=== PATIENT | female | born 1990 | race Caucasian/White ===

== ENCOUNTER → 2017-12-05 | Outpatient (CLI) | payer BC ==
[2017-12-05 07:45] LABS: Basophils % (A) 1 %; Eosinophils # (A) 0.1 k/uL (0-0.7); Eosinophils % (A) 2 %; HGB 13.7 gm/dL (11.4-16.0); Lymphocytes # (A) 2.2 k/uL (1.0-4.8); Lymphocytes % (A) 38 %; MCH 29.7 pg (25.0-35.0); MCHC 31.9 g/dL (31.0-37.0); MCV 93.2 fL (80.0-100.0); Mean Platelet Volume 6.8; Monocytes # (A) 0.4 k/uL (0-1.0); Monocytes % (A) 7 %; Neutrophils # (A) 2.8 k/uL (1.3-7.7); Neutrophils % (A) 49 %; Platelet Count 341 k/uL (150-450); RBC 4.61 m/uL (3.80-5.40); RDW 13.2 % (11.5-15.5); WBC 5.7 k/uL (3.8-10.6)
[2017-12-05 08:16] LABS: ALT 20 U/L (9-52); AST 25 U/L (14-36); Albumin 4.2 g/dL (3.5-5.0); Alkaline Phosphatase 46 U/L (38-126); Anion Gap 9 mmol/L; Blood Urea Nitrogen 17 mg/dL (7-17); Calcium 9.8 mg/dL (8.4-10.2); Carbon Dioxide 27 mmol/L (22-30); Chloride 105 mmol/L (98-107); Cholesterol 227 mg/dL (<200); Glucose 61 mg/dL (74-99); HDL Cholesterol 104 mg/dL (40-60); LDL Cholesterol,Calculated 113 mg/dL (0-99); Sodium 141 mmol/L (137-145); Total Bilirubin 0.3 mg/dL (0.2-1.3); Total Protein 7.3 g/dL (6.3-8.2); Triglycerides 50 mg/dL (<150)
[2017-12-05 19:14] LABS: Hemoglobin A1C 9.2 % (4.0-6.0)
== END | disposition home or self-care (01) ==
LOC: LABWHC1 07:10
PROVIDERS: ATTEND Family Medicine
DX: E10.9 Type 1 diabetes mellitus without complications (principal)
CPT/HCPCS: 36415; 80053; 80061; 83036; 84443; 85025

== ENCOUNTER → 2018-09-21 | Outpatient (CLI) | payer OTHER ==
[2018-09-21 16:11] LABS: African American GFR (CKD) 100.8 (60.0-200.0); Albumin 4.2 g/dL (3.80-4.90); Anion Gap 8.4 mmol/L (4.00-12.00); BUN/Creat Ratio 17.78 Ratio (12.00-20.00); Carbon Dioxide 25.6 mmol/L (21.6-31.8); Globulin 2.1 g/dL (1.6-3.3); Potassium 4.5 mmol/L (3.5-5.5); Total Bilirubin 0.6 mg/dL (0.3-1.2); Total Protein 6.3 g/dL (6.2-8.2)
[2018-09-21 17:53] LABS: Hemoglobin A1C 8.2 % (4.0-6.0)
== END | disposition home or self-care (01) ==
LOC: LABWHC1 07:20
PROVIDERS: ATTEND Internal Medicine Endocrinology, Diabetes & Metabolism
DX: E10.65 Type 1 diabetes mellitus with hyperglycemia (principal)
CPT/HCPCS: 36415; 80053; 83036; 84443

== ENCOUNTER → 2018-09-22 | Outpatient (CLI) | payer OTHER ==
[2018-09-22 11:33] LABS: LDL Cholesterol,Calculated 86.8 mg/dL (0.0-131.0); VLDL Calculation 16.2 mg/dL (5.00-40.00)
== END | disposition home or self-care (01) ==
LOC: LABWHC1 07:17
PROVIDERS: ATTEND Internal Medicine Endocrinology, Diabetes & Metabolism
DX: E10.65 Type 1 diabetes mellitus with hyperglycemia (principal)
CPT/HCPCS: 36415; 80061; 82043; 82570

== ENCOUNTER → 2019-03-02 | Outpatient (CLI) | payer OTHER ==
[2019-03-02 11:36] LABS: Urine Creatinine 136.4 mg/dL
[2019-03-02 11:48] LABS: African American GFR (CKD) 88.2 (60.0-200.0); Albumin 4.6 g/dL (3.80-4.90); Albumin/Globulin Ratio 2.09 (1.60-3.17); Anion Gap 8.6 mmol/L (4.00-12.00); Calcium 9.8 mg/dL (8.7-10.3); Carbon Dioxide 30.4 mmol/L (21.6-31.8); Chol/HDL Ratio 2.08; Globulin 2.2 g/dL (1.6-3.3); Non-African American GFR(CKD) 76.1 (60.0-200.0); Potassium 4.4 mmol/L (3.5-5.5); Total Bilirubin 0.7 mg/dL (0.2-1.2); Total Protein 6.8 g/dL (6.2-8.2)
[2019-03-02 13:19] LABS: Hemoglobin A1C 9.3 % (4.0-6.0)
== END | disposition home or self-care (01) ==
LOC: LABWHC1 07:21
PROVIDERS: ATTEND Internal Medicine Endocrinology, Diabetes & Metabolism
DX: E10.65 Type 1 diabetes mellitus with hyperglycemia (principal)
CPT/HCPCS: 36415; 80053; 80061; 82043; 82570; 83036; 84443

== ENCOUNTER → 2019-09-24 | Outpatient (CLI) | payer OTHER ==
[2019-09-24 15:10] LABS: African American GFR (CKD) 88.2 (60.0-200.0); Albumin 4.5 g/dL (3.80-4.90); Albumin/Globulin Ratio 1.96 (1.60-3.17); Anion Gap 9.7 mmol/L (4.00-12.00); Calcium 9.4 mg/dL (8.7-10.3); Carbon Dioxide 23.3 mmol/L (21.6-31.8); Chol/HDL Ratio 1.89; Globulin 2.3 g/dL (1.6-3.3); LDL Cholesterol,Calculated 74.4 mg/dL (0.0-131.0); Non-African American GFR(CKD) 76.1 (60.0-200.0); Potassium 4.6 mmol/L (3.5-5.5); Total Bilirubin 0.6 mg/dL (0.2-1.2); Total Protein 6.8 g/dL (6.2-8.2); VLDL Calculation 10.6 mg/dL (5.00-40.00)
[2019-09-24 17:39] LABS: Hemoglobin A1C 7.6 % (4.0-6.0)
[2019-09-24 18:53] LABS: Microalbumin Creatinine Ratio <30 mg/g Creat (0-30); Urine Creatinine 69.5 mg/dL
== END | disposition home or self-care (01) ==
LOC: LABWHC1 09:04
PROVIDERS: ATTEND Internal Medicine Endocrinology, Diabetes & Metabolism
DX: E10.65 Type 1 diabetes mellitus with hyperglycemia (principal)
CPT/HCPCS: 36415; 80053; 80061; 82043; 82570; 83036; 84443

== ENCOUNTER 2019-11-19 10:48 | Observation (INO) | payer OTHER ==
[2019-11-19 12:12] LABS: Appearance,Urine Turbid (Clear); Bacteria,Urine Rare /hpf; Basophils % (A) 1 %; Bilirubin,Urine Negative (Negative); Blood,Urine Large (Negative); Color,Urine Yellow; Eosinophils # (A) 0.1 k/uL (0-0.7); Eosinophils % (A) 1 %; Glucose,Urine (UA) Trace (Negative); HCT 42.7 % (34.0-46.0); HGB 13.8 gm/dL (11.4-16.0); Ketones,Urine Negative (Negative); Leukocyte Esterase,Urine Large (Negative); Lymphocytes # (A) 1.5 k/uL (1.0-4.8); Lymphocytes % (A) 22 %; MCH 29.6 pg (25.0-35.0); MCHC 32.4 g/dL (31.0-37.0); MCV 91.5 fL (80.0-100.0); Mean Platelet Volume 7.3; Monocytes # (A) 0.3 k/uL (0-1.0); Monocytes % (A) 5 %; Neutrophils # (A) 4.9 k/uL (1.3-7.7); Neutrophils % (A) 71 %; Nitrite,Urine Negative (Negative); PH, Urine 5.5 (5.0-8.0); Platelet Count 260 k/uL (150-450); Protein,Urine 1+ (Negative); RBC 4.66 m/uL (3.80-5.40); RBC,Urine >182 /hpf (0-5); RDW 12.3 % (11.5-15.5); Squamous Epithelial Cell,Urine 3 /hpf (0-4); Urobilinogen,Urine <2.0 mg/dL (<2.0); WBC,Urine >182 /hpf (0-5)
[2019-11-19 12:19] LABS: ALT 16 U/L (4-34); AST 29 U/L (14-36); African American GFR (CKD) >90 (>60 ml/min/1.73 sqM); Albumin 4.2 g/dL (3.5-5.0); Alkaline Phosphatase 49 U/L (38-126); Anion Gap 6 mmol/L; Blood Urea Nitrogen 16 mg/dL (7-17); Calcium 9.6 mg/dL (8.4-10.2); Carbon Dioxide 28 mmol/L (22-30); Chloride 102 mmol/L (98-107); Glucose 144 mg/dL (74-99); Non-African American GFR(CKD) >90 (>60 ml/min/1.73 sqM); Sodium 136 mmol/L (137-145); Total Bilirubin 0.5 mg/dL (0.2-1.3)
--- NOTE | 2019-11-19 12:22 | US ---
EXAMINATION TYPE: US renals and bladder DATE OF EXAM: 11/19/2019 COMPARISON: NONE CLINICAL HISTORY: stone. lower quadrant pain for over 2 weeks, possible UTI, h/o stones, diabetic EXAM MEASUREMENTS: Right Kidney: 9.5 x 4.8 x 6.1 cm Left Kidney: 11.9 x 4.6 x 5.0 cm Right Kidney: No hydronephrosis or masses seen Left Kidney: No hydronephrosis or masses seen Bladder: wnl and contracted Bilateral Jets seen: Yes There is no evidence for hydronephrosis at this point in time. No nephrolithiasis is seen. No servando s are identified. The urinary bladder is anechoic. Bilateral ureteral jets are seen. IMPRESSION: No significant abnormality
[2019-11-19] MEDS ORDERED: NALOXONE 0.4 MG/ML 1 ML VIAL IV PRN (12:38)
--- NOTE | 2019-11-19 12:38 | ED ---
Abdominal Pain HPI - General Chief Complaint: Abdominal Pain Stated Complaint: abd pain Time Seen by Provider: 11/19/19 11:01 Source: patient Mode of arrival: ambulatory Limitations: no limitations - History of Present Illness Initial Comments: 28-year-old female type I diabetic presenting for recurrent urinary tract infection. Patient states that for the past month she has had dysuria urgency frequency and lower midline pelvic discomfort. Pressure she states she's not had any vaginal discharge or right lower quadrant pain denies any upper abdomina l pain nausea vomiting but states that she has been on Bactrim and Macrobid within the last month and has continuous symptoms. Patient states that her urine culture that was obtained 3 weeks ago at [facility] did not grow anything.. Patient states she has had stones in the past denies back/flank pain, but states she is concerned for infection. Admits to chills, denies fevers. Patietn appears nontoxic on arrival. - Related Data Home Medications Medication Instructions Recorded Confirmed Atorvastatin [Lipitor] 20 mg PO DAILY 11/19/19 11/19/19 INSULIN LISPRO (For Pump) [humaLOG 0.01 units SQ-PUMP CONTINUOUS 11/19/19 11/19/19 (For Pump)] Insulin Glargine [Lantus] See Protocol SQ DAILY PRN 11/19/19 11/19/19 Norethindrone AC-Eth Estradiol 1 tab PO DAILY 11/19/19 11/19/19 [Microgestin 21 1.5-30 Tab] Allergies Allergy/AdvReac Type Severity Reaction Status Date / Time latex Allergy Rash/Hives Verified 11/19/19 11:25 Review of Systems ROS Statement: Those systems with pertinent positive or pertinent negative responses have been documented in the HPI. ROS Other: All systems not noted in ROS Statement are negative. Past Medical History Past Medical History: Diabetes Mellitus Additional Past Medical History / Comment(s): kidney stones History of Any Multi-Drug Resistant Organisms: None Reported Additional Past Surgical History / Comment(s): lithotripsy, Past Psychological History: No Psychological Hx Reported Smoking Status: Former smoker Past Alcohol Use History: Occasional Past Drug Use History: None Reported General Exam - General Exam Comments Initial Comments: General: The patient is awake and alert, in no distress Eye: Pupils are equal, round and reactive to light, extra-ocular movements are intact. No nystagmus. There is normal conjunctiva bilaterally. No signs of icterus. Cardiovascular: There is a regular rate and rhythm. No murmur, rub or gallop is appreciated. Respiratory: Lungs are clear to auscultation, respirations are non-labored, breath sounds are equal. No wheezes, stridor, rales, or rhonchi. Gastrointestinal: Soft, non-distended, non-tender abdomen without masses or organomegaly noted. There is no rebound or guarding present. Musculoskeletal: Normal ROM, no tenderness. Strength 5/5. Sensation intact. Pulses equal bilaterally 2+. Neurological: A&O x 3. CN II-XII intact grossly, There are no obvious motor or sensory deficits. Coordination appears grossly intact. Speech is normal. Skin: Skin is warm and dry and no rashes or lesions are noted. Psychiatric: Cooperative, appropriate mood & affect, normal judgment. Limitations: no limitations Course Vital Signs 11/19/19 10:57 Temperature 98 F Pulse Rate 99 Respiratory 18 Rate Blood Pressure 152/99 O2 Sat by Pulse 100 Oximetry Medical Decision Making - Medical Decision Making Labs stable. UA concerning for infection. US (-) for stone or hydronephrosis. Patietn most likely has hemorrhagic cystitis. Patient has been on macrobid and bactrim in last month with persistent symptoms. Given patient diabetic status, significant findings on UA with multiple outpatietn treatments with persistent symptoms patient will be admitted for IV abx and urine culture. Case was discussed with Dr. Hobbs who is agreeable to care plan and admission. - Lab Data Result diagrams: 11/19/19 11:37 11/19/19 11:37 Lab Results 11/19/19 11/19/19 11/19/19 Range/Units 11:37 11:37 11:37 WBC 7.0 (3.8-10.6) k/uL RBC 4.66 (3.80-5.40) m/uL Hgb 13.8 (11.4-16.0) gm/dL Hct 42.7 (34.0-46.0) % MCV 91.5 (80.0-100.0) fL MCH 29.6 (25.0-35.0) pg MCHC 32.4 (31.0-37.0) g/dL RDW 12.3 (11.5-15.5) % Plt Count 260 (150-450) k/uL Neutrophils % 71 % Lymphocytes % 22 % Monocytes % 5 % Eosinophils % 1 % Basophils % 1 % Neutrophils # 4.9 (1.3-7.7) k/uL Lymphocytes # 1.5 (1.0-4.8) k/uL Monocytes # 0.3 (0-1.0) k/uL Eosinophils # 0.1 (0-0.7) k/uL Basophils # 0.0 (0-0.2) k/uL Sodium 136 L (137-145) mmol/L Potassium 4.0 (3.5-5.1) mmol/L Chloride 102 (98-107) mmol/L Carbon Dioxide 28 (22-30) mmol/L Anion Gap 6 mmol/L BUN 16 (7-17) mg/dL Creatinine 0.75 (0.52-1.04) mg/dL Est GFR (CKD-EPI)AfAm >90 (>60 ml/min/1.73 sqM) Est GFR (CKD-EPI)NonAf >90 (>60 ml/min/1.73 sqM) Glucose 144 H (74-99) mg/dL Plasma Lactic Acid Ponce (0.7-2.0) mmol/L Calcium 9.6 (8.4-10.2) mg/dL Total Bilirubin 0.5 (0.2-1.3) mg/dL AST 29 (14-36) U/L ALT 16 (4-34) U/L Alkaline Phosphatase 49 (38-126) U/L Total Protein 7.0 (6.3-8.2) g/dL Albumin 4.2 (3.5-5.0) g/dL Urine Color Yellow Urine Appearance Turbid H (Clear) Urine pH 5.5 (5.0-8.0) Ur Specific [place] 1.020 (1.001-1.035) Urine Protein 1+ H (Negative) Urine Glucose (UA) Trace H (Negative) Urine Ketones Negative (Negative) Urine Blood Large H (Negative) Urine Nitrite Negative (Negative) Urine Bilirubin Negative (Negative) Urine Urobilinogen <2.0 (<2.0) mg/dL Ur Leukocyte Esterase Large H (Negative) Urine RBC >182 H (0-5) /hpf Urine WBC >182 H (0-5) /hpf Urine WBC Clumps Many H (None) /hpf Ur Squamous Epith Cells 3 (0-4) /hpf Urine Bacteria Rare H (None) /hpf Urine HCG, Qual (Not Detectd) 11/19/19 11/19/19 Range/Units 11:37 12:35 WBC (3.8-10.6) k/uL RBC (3.80-5.40) m/uL Hgb (11.4-16.0) gm/dL Hct (34.0-46.0) % MCV (80.0-100.0) fL MCH (25.0-35.0) pg MCHC (31.0-37.0) g/dL RDW (11.5-15.5) % Plt Count (150-450) k/uL Neutrophils % % Lymphocytes % % Monocytes % % Eosinophils % % Basophils % % Neutrophils # (1.3-7.7) k/uL Lymphocytes # (1.0-4.8) k/uL Monocytes # (0-1.0) k/uL Eosinophils # (0-0.7) k/uL Basophils # (0-0.2) k/uL Sodium (137-145) mmol/L Potassium (3.5-5.1) mmol/L Chloride (98-107) mmol/L Carbon Dioxide (22-30) mmol/L Anion Gap mmol/L BUN (7-17) mg/dL Creatinine (0.52-1.04) mg/dL Est GFR (CKD-EPI)AfAm (>60 ml/min/1.73 sqM) Est GFR (CKD-EPI)NonAf (>60 ml/min/1.73 sqM) Glucose (74-99) mg/dL Plasma Lactic Acid Ponce 1.8 (0.7-2.0) mmol/L Calcium (8.4-10.2) mg/dL Total Bilirubin (0.2-1.3) mg/dL AST (14-36) U/L ALT (4-34) U/L Alkaline Phosphatase (38-126) U/L Total Protein (6.3-8.2) g/dL Albumin (3.5-5.0) g/dL Urine Color Urine Appearance (Clear) Urine pH (5.0-8.0) Ur Specific [place] (1.001-1.035) Urine Protein (Negative) Urine Glucose (UA) (Negative) Urine Ketones (Negative) Urine Blood (Negative) Urine Nitrite (Negative) Urine Bilirubin (Negative) Urine Urobilinogen (<2.0) mg/dL Ur Leukocyte Esterase (Negative) Urine RBC (0-5) /hpf Urine WBC (0-5) /hpf Urine WBC Clumps (None) /hpf Ur Squamous Epith Cells (0-4) /hpf Urine Bacteria (None) /hpf Urine HCG, Qual Not Detected (Not Detectd) Disposition Clinical Impression: UTI (urinary tract infection), Failure of outpatient treatment Disposition: ADMITTED IP TO THIS HOSP Condition: Stable Is patient prescribed a controlled substance at d/c from ED?: No Time of Disposition: 12:38 Decision to Admit Reason: Admit from EC Decision Date: 11/19/19 Decision Time: 12:38
[2019-11-19] MEDS ORDERED: MORPHINE SULFATE 2 MG/ML SYRINGE IVP PRN (16:19)
[2019-11-19] MEDS: SODIUM CHLORIDE 0.9% 1,000 ML IV SCH (16:27)
[2019-11-19 17:33] LABS: Glucose,Whole Blood 120 mg/dL (75-99)
[2019-11-19] MEDS: PHENAZOPYRIDINE 100 MG TAB PO SCH (18:15)
[2019-11-19] MEDS ORDERED: INSPUCOR MISCELLANE PRN (19:26)
[2019-11-19] MEDS ORDERED: INSULIN PUMP BASAL RATES 1 EACH MISC MISCELLANE PRN (19:26)
[2019-11-19] MEDS ORDERED: INSULIN ASPART (NovoLOG) 100 UNIT/ML VIAL SQ PRN (19:26)
[2019-11-19] MEDS: INSULIN PUMP MEAL BOLUS 1 UNIT MISC MISCELLANE SCH ×2 (19:39→23:48)
--- NOTE | 2019-11-19 20:39 | P.HPIM ---
History of Present Illness H&P Date: 11/19/19 Chief Complaint: Lower abdominal discomfort Patient is a 28-year-old female with a known history of diabetes type 1 on insulin pump, history of renal stones status post lithotripsy and previous history of smoking came to ER with complaints of lower abdominal and suprapubic discomfort. Patient is being treated for urinary tract infection for the past 4 weeks with multiple antibiotics. Patient was Bactrim, Keflex and nitrofurantoin during the last 4 weeks. Patient also complaining urgency and frequency of urination and occasional dysuria. Today patient was at work and since suddenly felt urgency and sharp pain towards the left flank region. Patient came to ER for evaluation. Patient states that she felt similar pain while in the ER. Otherwise denied any fever or chills. No nausea vomiting or diarrhea. Denied any vaginal discharge or upper quadrant abdominal pain. Patient states that her previous cultures have been negative. Currently denies any flank pain. Renal ultrasound showed there is no evidence for hydronephrosis at this point in time. No nephrolithiasis is seen. No masses are magnified. Urinary bladder is anechoic. Bilateral ureteral jets are seen. Lab data showed WBC 7.0, hemoglobin 13.8 and platelets 260 Sodium 136, potassium 4.0, bicarb is 28, BUN 16 and creatinine 0.75 lactic acid 1.8 Liver enzymes and within normal limits. Urinalysis showed turbid with 1+ protein, large leukocyte esterase and greater than 180 WBCs and RBCs with many WBC clumps. Albumin 4.2. Review of Systems Constitutional: Patient denies any fever or chills . No generalized weakness or weight loss. Abdomen: Patient denied nausea vomiting and diarrhea and abdominal pain. Cardiovascular: Patient denies any chest pain or short of breath no palpitations. Respiratory: patient denied any cough or sputum production. No shortness of breath Neurologic: Patient denied any numbness or tingling headache. Musculoskeletal: Patient denies any complaints of joint swelling or deformity. Skin: Negative Psychiatric: Negative Endocrine: No heat or cold intolerance. No recent weight gain. Genitourinary: No dysuria or hematuria. All other 14 point ROS negative except the above Past Medical History Past Medical History: Diabetes Mellitus Additional Past Medical History / Comment(s): kidney stones History of Any Multi-Drug Resistant Organisms: None Reported Additional Past Surgical History / Comment(s): lithotripsy, Past Psychological History: No Psychological Hx Reported Smoking Status: Former smoker Past Alcohol Use History: Occasional Past Drug Use History: None Reported - Past Family History Mother Family Medical History: No Reported History Father Family Medical History: No Reported History Medications and Allergies Home Medications Medication Instructions Recorded Confirmed Type Atorvastatin [Lipitor] 20 mg PO DAILY 11/19/19 11/19/19 History INSULIN LISPRO (For Pump) [humaLOG 0.01 units SQ-PUMP CONTINUOUS 11/19/19 11/19/19 History (For Pump)] Insulin Glargine [Lantus] See Protocol SQ DAILY PRN 11/19/19 11/19/19 History Norethindrone AC-Eth Estradiol 1 tab PO DAILY 11/19/19 11/19/19 History [Microgestin 21 1.5-30 Tab] Allergies Allergy/AdvReac Type Severity Reaction Status Date / Time latex Allergy Rash/Hives Verified 11/19/19 17:03 Physical Exam Vitals: Vital Signs Temp Pulse Pulse Resp BP BP Pulse Ox 11/19/19 19:39 98.3 F 80 16 127/76 97 11/19/19 15:40 98.5 F 86 18 108/66 95 11/19/19 14:14 85 16 131/74 98 11/19/19 10:57 98 F 99 18 152/99 100 Intake and Output 11/19/19 11/19/19 11/19/19 06:59 14:59 22:59 Output Total 500 Balance -500 Output: Urine 500 Other: Voiding Method Toilet Weight 71.3 kg PHYSICAL EXAMINATION: Patient is lying in the bed comfortably, no acute distress, awake alert and oriented.. HEENT: Normocephalic. Neck is supple. Pupils reactive. Nostrils clear. Oral cavity is moist. Ears reveal no drainage. Neck reveals no JVD, carotid bruits, or thyromegaly. CHEST EXAMINATION: Trachea is central. Symmetrical expansion. Lung murray clear to auscultation and percussion. CARDIAC: Normal S1, S2 with no gallops. No murmurs ABDOMEN: Soft. Bowel sounds normal. No organomegaly. No abdominal bruits. Extremities: reveal no edema. No clubbing or cyanosis Neurologically awake, alert, oriented x3 with well-coordinated movements. No focal deficits noted Skin: No rash or skin lesions. Psychiatric: Coperative. Nonsuicidal Musculoskeletal: No joint swelling or deformity. Normal range of motion. Results CBC & Chem 7: 11/19/19 11:37 11/19/19 11:37 Labs: Abnormal Lab Results - Last 24 Hours (Table) 11/19/19 11/19/19 11/19/19 Range/Units 11:37 11:37 17:30 Sodium 136 L (137-145) mmol/L Glucose 144 H (74-99) mg/dL POC Glucose (mg/dL) 120 H (75-99) mg/dL Urine Appearance Turbid H (Clear) Urine Protein 1+ H (Negative) Urine Glucose (UA) Trace H (Negative) Urine Blood Large H (Negative) Ur Leukocyte Esterase Large H (Negative) Urine RBC >182 H (0-5) /hpf Urine WBC >182 H (0-5) /hpf Urine WBC Clumps Many H (None) /hpf Urine Bacteria Rare H (None) /hpf Thrombosis Risk Factor Assmnt - DVT/VTE Prophylaxis DVT/VTE Prophylaxis: Pharmacologic Prophylaxis ordered - Choose All That Apply Any of the Below Risk Factors Present?: Yes Each Factor Represents 1 point: Obesity (BMI >25), Oral contraceptives or hormo ne replacement therapy Other Risk Factors: Yes Each Risk Factor Represents 3 Points: Family history of DVT/PE Other congenital or acquired thrombophilia - If yes, enter type in comment: No Thrombosis Risk Factor Assessment Total Risk Factor Score: 5 Thrombosis Risk Factor Assessment Level: High Risk Assessment and Plan Assessment: Acute urinary tract infection. Failed outpatient antibiotic therapy. Diabetes type 1. Currently insulin pump Previous history of renal stones status post lithotripsy DVT prophylaxis Plan: Patient will be continued on IV hydration and pain management with Toradol. Continue with antibiotics in the form of ceftriaxone. Follow-up urine culture report. Continue with Pyridium for bladder discomfort and spasms. Ultrasound of renal/kidneys showed no evidence of hydronephrosis. No renal stones were noted. Continue to follow closely. Time with Patient: Greater than 30
[2019-11-19 22:41] LABS: Glucose,Whole Blood 114 mg/dL (75-99)
[2019-11-20] MEDS: PHENAZOPYRIDINE 100 MG TAB PO SCH ×3 (00:02→21:48)
[2019-11-20] MEDS ORDERED: PHENAZOPYRIDINE 100 MG TAB PO SCH (06:00)
[2019-11-20 06:28] LABS: Glucose,Whole Blood 110 mg/dL (75-99)
[2019-11-20] MEDS: SODIUM CHLORIDE 0.9% 1,000 ML IV SCH ×2 (06:28→18:55)
[2019-11-20] MEDS: INSULIN PUMP MEAL BOLUS 1 UNIT MISC MISCELLANE SCH ×4 (08:51→21:50)
[2019-11-20] MEDS: KETOROLAC 15 MG/ML 1 ML VIAL IVP PRN ×2 (09:01→16:25)
[2019-11-20] MEDS: ATORVASTATIN 20 MG TAB PO SCH (09:02)
[2019-11-20 12:56] LABS: Glucose,Whole Blood 122 mg/dL (75-99)
[2019-11-20 17:33] LABS: Glucose,Whole Blood 204 mg/dL (75-99)
[2019-11-20 21:51] LABS: Glucose,Whole Blood 209 mg/dL (75-99)
[2019-11-21] MEDS: KETOROLAC 15 MG/ML 1 ML VIAL IVP PRN (02:57)
[2019-11-21 06:31] LABS: Glucose,Whole Blood 130 mg/dL (75-99)
[2019-11-21] MEDS: INSULIN PUMP MEAL BOLUS 1 UNIT MISC MISCELLANE SCH ×5 (06:41→20:50)
[2019-11-21 07:23] LABS: Basophils % (A) 1 %; Eosinophils # (A) 0.1 k/uL (0-0.7); Eosinophils % (A) 1 %; HCT 39.8 % (34.0-46.0); HGB 12.8 gm/dL (11.4-16.0); Lymphocytes % (A) 35 %; MCH 29.8 pg (25.0-35.0); MCHC 32.1 g/dL (31.0-37.0); MCV 92.7 fL (80.0-100.0); Mean Platelet Volume 7.5; Monocytes # (A) 0.3 k/uL (0-1.0); Monocytes % (A) 5 %; Neutrophils # (A) 3.3 k/uL (1.3-7.7); Neutrophils % (A) 57 %; Platelet Count 219 k/uL (150-450); RBC 4.29 m/uL (3.80-5.40); RDW 12.2 % (11.5-15.5); WBC 5.8 k/uL (3.8-10.6)
[2019-11-21 07:35] LABS: African American GFR (CKD) >90 (>60 ml/min/1.73 sqM); Anion Gap 4 mmol/L; Blood Urea Nitrogen 14 mg/dL (7-17); Calcium 8.5 mg/dL (8.4-10.2); Carbon Dioxide 23 mmol/L (22-30); Chloride 108 mmol/L (98-107); Glucose 133 mg/dL (74-99); Non-African American GFR(CKD) >90 (>60 ml/min/1.73 sqM); Potassium 4.1 mmol/L (3.5-5.1); Sodium 135 mmol/L (137-145)
[2019-11-21] MEDS: SODIUM CHLORIDE 0.9% 1,000 ML IV SCH ×2 (08:53→18:31)
[2019-11-21] MEDS: PHENAZOPYRIDINE 100 MG TAB PO SCH ×3 (08:54→21:42)
[2019-11-21] MEDS: ATORVASTATIN 20 MG TAB PO SCH (08:54)
[2019-11-21 13:01] LABS: Glucose,Whole Blood 112 mg/dL (75-99)
[2019-11-21] MEDS: IOPAMIDOL CONTRAST (ORAL USE) VIAL PO PRN ×2 (14:54→15:42)
[2019-11-21 16:29] LABS: Appearance,Urine Clear (Clear); Bilirubin,Urine Negative (Negative); Blood,Urine Negative (Negative); Color,Urine Yellow; Glucose,Urine (UA) Negative (Negative); Ketones,Urine Negative (Negative); Leukocyte Esterase,Urine Negative (Negative); Nitrite,Urine Negative (Negative); PH, Urine 5.5 (5.0-8.0); Protein,Urine Negative (Negative); Specific Gravity,Urine 1.006 (1.001-1.035); Urobilinogen,Urine <2.0 mg/dL (<2.0)
--- NOTE | 2019-11-21 17:14 | CT ---
EXAMINATION TYPE: CT abdomen pelvis w con DATE OF EXAM: 11/21/2019 COMPARISON: 10/09/2011 HISTORY: Mid Abdominal pain and hematuria with history of renal stones. CT DLP: 679.9 mGycm Automated exposure control for dose reduction was used. CONTRAST: Performed with IV Contrast, patient injected with 100 mL of Isovue 300. There is oral contrast. Lung bases are clear. There is no pleural effusion. Heart appears normal. Liver spleen stomach gallbladder pancreas appear normal. Bile ducts are not dilated. There is no adrenal mass. Kidneys show satisfactory contrast opacification. There is no hydronephrosi s. Bladder distends smoothly. There is no inguinal hernia. Uterus is anteverted. The cul-de-sac is cl ear fluid. There is no evidence of a pelvic mass. There is no free fluid in the pelvis. There is no mesenteric e richard. There is no ascites or free air. There is no bowel obstruction. There is normal contrast opacif ication of the small bowel. Appendix is not seen. There is no sign of thickened appendix. There is no evidence of renal calculus. The lumbar vertebra have normal alignment. Disc spaces are fairly normal. There is no compression fra cture. Bony pelvis is intact. IMPRESSION: Negative CT scan of the abdomen pelvis. Appendix not seen.
[2019-11-21 17:51] LABS: Glucose,Whole Blood 145 mg/dL (75-99)
[2019-11-21 20:52] LABS: Glucose,Whole Blood 208 mg/dL (75-99)
--- NOTE | 2019-11-21 22:16 | P.PN ---
Subjective Progress Note Date: 11/20/19 Patient is a 28-year-old female with a known history of diabetes type 1 on insulin pump, history of renal stones status post lithotripsy and previous history of smoking came to ER with complaints of lower abdominal and suprapubic discomfort. Patient is being treated for urinary tract infection for the past 4 weeks with multiple antibiotics. Patient was Bactrim, Keflex and nitrofurantoin during the last 4 weeks. Patient also complaining urgency and frequency of urination and occasional dysuria. Today patient was at work and since suddenly felt urgency and sharp pain towards the left flank region. Patient came to ER for evaluation. Patient states that she felt similar pain while in the ER. Ot [facility] denied any fever or chills. No nausea vomiting or diarrhea. Denied any vaginal discharge or upper quadrant abdominal pain. Patient states that her previous cultures have been negative. Currently denies any flank pain. Renal ultrasound showed there is no evidence for hydronephrosis at this point in time. No nephrolithiasis is seen. No masses are magnified. Urinary bladder is anechoic. Bilateral ureteral jets are seen. Lab data showed WBC 7.0, hemoglobin 13.8 and platelets 260 Sodium 136, potassium 4.0, bicarb is 28, BUN 16 and creatinine 0.75 lactic acid 1.8 Liver enzymes and within normal limits. Urinalysis showed turbid with 1+ protein, large leukocyte esterase and greater than 180 WBCs and RBCs with many WBC clumps. Albumin 4.2. 11/20/2019 Patient is currently lying in the bed comfortably. No complaints of chest pain or shortness breath. Patient is still complaining of bladder spasms continuously. On antibiotics in the form of ceftriaxone. Urine cultures showed no growth so far. Patient is being continued on Pyridium for bladder discomfort. Patient has been afebrile and no nausea vomiting or diarrhea. Current medications reviewed. Objective - Vital Signs Vital signs: Vital Signs Temp 98.3 F 11/20/19 19:39 Pulse 89 11/20/19 19:39 Resp 18 11/20/19 19:39 BP 111/68 11/20/19 19:39 Pulse Ox 95 11/20/19 19:39 Intake & Output 11/20/19 11/20/19 11/21/19 06:59 18:59 06:59 Intake Total 1100 540 Output Total 500 1 Balance -500 1100 539 Intake: Intake, IV Titration 600 Amount Sodium Chloride 0.9% 1, 600 000 ml @ 75 mls/hr IV . [id number] [facility] Rx#:[id number] Oral 500 540 Output: Urine 500 1 Other: Voiding Method Toilet Toilet Toilet # Voids 1 3 200 - Exam PHYSICAL EXAMINATION: Patient is lying in the bed comfortably, no acute distress, awake alert and oriented.. HEENT: Normocephalic. Neck is supple. Pupils reactive. Nostrils clear. Oral cavity is moist. Ears reveal no drainage. Neck reveals no JVD, carotid bruits, or thyromegaly. CHEST EXAMINATION: Trachea is central. Symmetrical expansion. Lung murray clear to auscultation and percussion. CARDIAC: Normal S1, S2 with no gallops. No murmurs ABDOMEN: Soft. Tenderness over the suprapubic region. Bowel sounds normal. No organomegaly. No abdominal bruits. Extremities: reveal no edema. No clubbing or cyanosis Neurologically awake, alert, oriented x3 with well-coordinated movements. No focal deficits noted Skin: No rash or skin lesions. Psychiatric: Coperative. Nonsuicidal Musculoskeletal: No joint swelling or deformity. Normal range of motion. - Labs CBC & Chem 7: 11/21/19 07:02 11/21/19 07:02 Labs: Abnormal Lab Results - Last 24 Hours (Table) 11/20/19 11/20/19 11/20/19 Range/Units 06:26 12:55 17:32 POC Glucose (mg/dL) 110 H 122 H 204 H (75-99) mg/dL 11/20/19 Range/Units 21:50 POC Glucose (mg/dL) 209 H (75-99) mg/dL Microbiology - Last 24 Hours (Table) 11/19/19 12:35 Blood Culture - Preliminary Blood No Growth after 24 hours 11/19/19 11:37 Urine Culture - Preliminary Urine,Voided Assessment and Plan Assessment: Acute urinary tract infection. Failed outpatient antibiotic therapy. Bladder discomfort/spasms Diabetes type 1. Currently insulin pump Previous history of renal stones status post lithotripsy DVT prophylaxis Plan: Patient will be continued on IV hydration and pain management with Toradol. Continue with antibiotics in the form of ceftriaxone. Follow-up urine culture report. Continue with Pyridium for bladder discomfort and spasms. Ultrasound of renal/kidneys showed no evidence of hydronephrosis. No renal stones were noted. Continue to follow closely. Time with Patient: Greater than 30
--- NOTE | 2019-11-21 22:18 | P.PN ---
Subjective Progress Note Date: 11/21/19 Principal diagnosis: Acute urinary tract infection. Failed outpatient antibiotic therapy. Patient is a 28-year-old female with a known history of diabetes type 1 on insulin pump, history of renal stones status post lithotripsy and previous history of smoking came to ER with complaints of lower abdominal and suprapubic discomfort. Patient is being treated for urinary tract infection for the past 4 weeks with multiple antibiotics. Patient was Bactrim, Keflex and nitrofurantoin during the last 4 weeks. Patient also complaining urgency and frequency of urination and occasional dysuria. Today patient was at work and since suddenly felt urgency and sharp pain towards the left flank region. Patient came to ER for evaluation. Patient states that she felt similar pain while in the ER. Otherwise denied any fever or chills. No nausea vomiting or diarrhea. Denied any vaginal discharge or upper quadrant abdominal pain. Patient states that her previous cultures have been negative. Currently denies any flank pain. Renal ultrasound showed there is no evidence for hydronephrosis at this point in time. No nephrolithiasis is seen. No masses are magnified. Urinary bladder is anechoic. Bilateral ureteral jets are seen. Lab data showed WBC 7.0, hemoglobin 13.8 and platelets 260 Sodium 136, potassium 4.0, bicarb is 28, BUN 16 and creatinine 0.75 lactic acid 1.8 Liver enzymes and within normal limits. Urinalysis showed turbid with 1+ protein, large leukocyte esterase and greater than 180 WBCs and RBCs with many WBC clumps. Albumin 4.2. 11/20/2019 Patient is currently lying in the bed comfortably. No complaints of chest pain or shortness breath. Patient is still complaining of bladder spasms continuously. On antibiotics in the form of ceftriaxone. Urine cultures showed no growth so far. Patient is being continued on Pyridium for bladder d iscomfort. Patient has been afebrile and no nausea vomiting or diarrhea. 11/21/2019 Patient is currently lying in the bed comfortably. Patient states that she is still having lower abdominal discomfort mainly in the suprapubic region especially with activity. Minimal improvement compared to yesterday. Patient is being continued on IV hydration and antibiotics. Urine culture showed no growth so far. CT of the abdomen pelvis was ordered and urology was consulted for evaluation. Patient has been having symptoms for the past 1 month. No fever no chills. No nausea vomiting or diarrhea. Current medications reviewed. Objective - Vital Signs Vital signs: Vital Signs Temp 97.7 F 11/21/19 15:00 Pulse 80 11/21/19 15:00 Resp 18 11/21/19 15:00 BP 126/77 11/21/19 15:00 Pulse Ox 97 11/21/19 15:00 Intake & Output 11/21/19 11/21/19 11/22/19 06:59 18:59 06:59 Intake Total 1290 Output Total 1200 Balance 90 Intake: Intake, IV Titration 750 Amount Sodium Chloride 0.9% 1, 750 000 ml @ 75 mls/hr IV . [id number] CARMELINA Rx#:[id number] Oral 540 Output: Urine 1200 Other: Voiding Method Toilet # Voids 1 1 - Exam PHYSICAL EXAMINATION: Patient is lying in the bed comfortably, no acute distress, awake alert and oriented.. HEENT: Normocephalic. Neck is supple. Pupils reactive. Nostrils clear. Oral cavity is moist. Ears reveal no drainage. Neck reveals no JVD, carotid bruits, or thyromegaly. CHEST EXAMINATION: Trachea is central. Symmetrical expansion. Lung murray clear to auscultation and percussion. CARDIAC: Normal S1, S2 with no gallops. No murmurs ABDOMEN: Soft. Tenderness over the suprapubic region. Bowel sounds normal. No organomegaly. No abdominal bruits. Extremities: reveal no edema. No clubbing or cyanosis Neurologically awake, alert, oriented x3 with well-coordinated movements. No focal deficits noted Skin: No rash or skin lesions. Psychiatric: Coperative. Nonsuicidal Musculoskeletal: No joint swelling or deformity. Normal range of motion. - Labs CBC & Chem 7: 11/21/19 07:02 11/21/19 07:02 Labs: Abnormal Lab Results - Last 24 Hours (Table) 11/20/19 11/21/19 11/21/19 Range/Units 21:50 06:30 07:02 Sodium 135 L (137-145) mmol/L Chloride 108 H (98-107) mmol/L Glucose 133 H (74-99) mg/dL POC Glucose (mg/dL) 209 H 130 H (75-99) mg/dL 11/21/19 11/21/19 Range/Units 12:59 17:50 Sodium (137-145) mmol/L Chloride (98-107) mmol/L Glucose (74-99) mg/dL POC Glucose (mg/dL) 112 H 145 H (75-99) mg/dL Microbiology - Last 24 Hours (Table) 11/19/19 11:37 Urine Culture - Final Urine,Voided 11/19/19 12:35 Blood Culture - Preliminary Blood No Growth after 48 hours Assessment and Plan Assessment: Acute urinary tract infection. Failed outpatient antibiotic therapy. Bladder discomfort/spasms Diabetes type 1. Currently insulin pump Previous history of renal stones status post lithotripsy DVT prophylaxis Plan: Patient will be continued on IV hydration and pain management with Toradol. Continue with antibiotics in the form of ceftriaxone. Follow-up urine culture report. Continue with Pyridium for bladder discomfort and spasms. Ultrasound of renal/kidneys showed no evidence of hydronephrosis. No renal stones were noted. Continue to follow closely. Time with Patient: Greater than 30
[2019-11-22] MEDS: SODIUM CHLORIDE 0.9% 1,000 ML IV SCH (05:29)
[2019-11-22 07:31] LABS: Glucose,Whole Blood 116 mg/dL (75-99)
[2019-11-22] MEDS: INSULIN PUMP MEAL BOLUS 1 UNIT MISC MISCELLANE SCH ×2 (08:00→12:30)
[2019-11-22] MEDS: ATORVASTATIN 20 MG TAB PO SCH (08:32)
[2019-11-22] MEDS: PHENAZOPYRIDINE 100 MG TAB PO SCH (08:33)
[2019-11-22] MEDS ORDERED: INSULIN PUMP TARGET GLUCOSE 1 EACH MISC MISCELLANE PRN (11:30)
[2019-11-22] MEDS ORDERED: INSULIN PUMP ACTIVE INSULIN 1 EACH MISC MISCELLANE PRN (11:30)
[2019-11-22 12:41] LABS: Glucose,Whole Blood 122 mg/dL (75-99)
[2019-11-22 12:52] VITALS: BP 123/85; PULSE 75; RESP 16; TEMP 98.5
--- NOTE | 2019-11-23 03:30 | DS ---
DISCHARGE SUMMARY DATE OF SERVICE: 11/22/2019 FINAL DIAGNOSES: 1. Acute urinary tract infection, cultures negative. 2. History of recurrent urinary tract infections. 3. History of bladder spasm. 4. Diabetes mellitus type 1. 5. Previous history of renal stones, status post lithotripsy. 6. Deep venous thrombosis prophylaxis. DISCHARGE DISPOSITION: The patient will be discharged in stable condition with guarded prognosis. HISTORY OF PRESENT ILLNESS: This 28-year-old woman with a past medical history of multiple medical problems being followed Dr. Vera in the outpatient setting admitted with UTI. The patient has significant symptoms, treated symptomatically, improved significantly. The patient has been on empiric antibiotics. Abdomen and pelvis CT scan did not show acute abnormality. Cultures are negative so far. The patient had urology appointment . On exam, vitals are stable. CARDIOVASCULAR: S1, S2 muffled. ABDOMEN: Soft. NERVOUS SYSTEM: No focal deficits. DISCHARGE ADVICE: 1. Diet is cardiac. 2. Activity limited until followup. 3. Follow up with Dr. Vera in 1-2 days. 4. Follow up with Urology as recommended. Medications are: 1. Insulin pump as before. 2. Lipitor 20 mg daily. 3. Norethindrone Estradiol one daily. 4. Ceftin 500 mg p.o. b.i.d. for 3 days. 5. Pyridium 100 mg p.o. t.i.d. for 10 days. Once again the patient will be discharged in stable condition with guarded prognosis. MMODL / IJN: [id number] / MTDMya
== END 2019-11-22 14:10 | disposition home or self-care (01) ==
LOC: EC 10:48 → 6PED 12:37 → INTOOBSV 11-21 12:05 → OBSVTOIN 11-21 12:05 → UNDODISIN 11-22 14:10
PROVIDERS: ADMIT Internal Medicine; ATTEND Internal Medicine
DX: N39.0 Urinary tract infection, site not specified (principal); Z87.440 Personal history of urinary (tract) infections; Z79.4 Long term (current) use of insulin; E10.8 Type 1 diabetes mellitus with unspecified complications; Z96.41 Presence of insulin pump (external) (internal); Z87.442 Personal history of urinary calculi; Z87.891 Personal history of nicotine dependence; Z98.890 Other specified postprocedural states; N32.89 Other specified disorders of bladder; Z79.3 Long term (current) use of hormonal contraceptives; Z79.899 Other long term (current) drug therapy; Z91.040 Latex allergy status
CPT/HCPCS: 96361 ×3; 96366; 96375; 96376 ×2; 96365; 99285; 36415; 80053; 80048; 83605; 85025 ×2; 81003; 81001; 81025; 87040; 87086; 76770; 74177; G0378 ×4; J0696 ×4; J2270; J1885 ×2; Q9967

== ENCOUNTER → 2020-02-21 | Outpatient (CLI) | payer OTHER ==
[2020-02-21 15:28] LABS: ALT 15 U/L (8-44); AST 21 U/L (13-35); African American GFR (CKD) 87.5 (60.0-200.0); Albumin/Globulin Ratio 1.87 (1.60-3.17); Alkaline Phosphatase 41 U/L (41-126); Calcium 9.6 mg/dL (8.7-10.3); Carbon Dioxide 28.6 mmol/L (21.6-31.8); Chloride 105 mmol/L (96-109); Chol/HDL Ratio 1.89; Cholesterol 180 mg/dL (0-200); Globulin 2.3 g/dL (1.6-3.3); Glucose 172 mg/dL (70-110); Non-African American GFR(CKD) 75.5 (60.0-200.0); Potassium 5.1 mmol/L (3.5-5.5); Sodium 137 mmol/L (135-145); Total Bilirubin 0.6 mg/dL (0.2-1.2); Total Protein 6.6 g/dL (6.2-8.2); Triglycerides <50.0 mg/dL (0.0-149.0)
[2020-02-21 17:25] LABS: Hemoglobin A1C 7.5 % (4.0-6.0)
[2020-02-21 17:48] LABS: Urine Creatinine 148.2 mg/dL
== END | disposition home or self-care (01) ==
LOC: LABWHC1 08:42
PROVIDERS: ATTEND Internal Medicine Endocrinology, Diabetes & Metabolism
DX: E10.65 Type 1 diabetes mellitus with hyperglycemia (principal)
CPT/HCPCS: 36415; 80053; 80061; 82043; 82570; 83036; 84443

== ENCOUNTER → 2020-10-04 | Outpatient (CLI) | payer SELFPAY ==
[2020-10-04 19:06] LABS: Hemoglobin A1C 7.9 % (4.0-6.0)
[2020-10-04 20:28] LABS: Microalbumin Creatinine Ratio <30 mg/g Creat (0-30); Urine Creatinine 75.1 mg/dL
== END | disposition home or self-care (01) ==
LOC: LABWHC1 07:37
PROVIDERS: ATTEND Internal Medicine
DX: E10.65 Type 1 diabetes mellitus with hyperglycemia (principal)
CPT/HCPCS: 36415; 82043; 82570; 83036

== ENCOUNTER → 2020-12-22 | Outpatient (CLI) | payer OTHER ==
[2020-12-22 09:13] LABS: HCT 41.8 % (34.0-46.0); HGB 13.8 gm/dL (11.4-16.0); MCH 31.3 pg (25.0-35.0); MCHC 32.9 g/dL (31.0-37.0); MCV 95.2 fL (80.0-100.0); Mean Platelet Volume 8.1; Platelet Count 273 k/uL (150-450); RBC 4.39 m/uL (3.80-5.40); RDW 12.3 % (11.5-15.5); WBC 5.5 k/uL (3.8-10.6)
[2020-12-22 09:22] LABS: African American GFR (CKD) >90 (>60 ml/min/1.73 sqM); Anion Gap 8 mmol/L; Blood Urea Nitrogen 17 mg/dL (7-17); Calcium 9.5 mg/dL (8.4-10.2); Carbon Dioxide 25 mmol/L (22-30); Chloride 100 mmol/L (98-107); Glucose 309 mg/dL (74-99); Non-African American GFR(CKD) >90 (>60 ml/min/1.73 sqM); Potassium 4.4 mmol/L (3.5-5.1); Sodium 133 mmol/L (137-145)
== END | disposition home or self-care (01) ==
LOC: LABPAT 08:05
PROVIDERS: ATTEND Podiatrist Foot & Ankle Surgery
DX: Z01.812 Encounter for preprocedural laboratory examination (principal)
CPT/HCPCS: 80048; 85027

== ENCOUNTER → 2021-01-02 | Outpatient (CLI) | payer OTHER | END | disposition home or self-care (01) | LOC: LABWHC1 08:12 | PROVIDERS: ATTEND Podiatrist Foot & Ankle Surgery | DX: E11.9 Type 2 diabetes mellitus without complications (principal) | CPT/HCPCS: 36415; 83036 ==

== ENCOUNTER 2021-01-05 06:20 | Day surgery (SDC) | payer OTHER ==
[2021-01-03 11:21] VITALS: BMI 32.2
[~2021-01-05 06:20] MED LIST: Pre Op ABX Message 1 EACH MISC MISCELLANE ONE
[2021-01-05] MEDS ORDERED: ONDANSETRON 4 MG/2 ML VIAL IVP ONE (06:33)
[2021-01-05] MEDS ORDERED: SCOPOLAMINE 1.5MG/72HR PATCH TRANSDERM ONE (06:33)
[2021-01-05] MEDS ORDERED: DEXAMETHASONE SOD PHOSPHATE 4 MG/ML 1 ML VIAL IV ONE (06:33)
[2021-01-05] MEDS ORDERED: MIDAZOLAM 2 MG/2 ML VIAL IV PRN (06:33)
[2021-01-05] MEDS ORDERED: LACTATED RINGERS 1,000 ML IV SCH (06:33)
[2021-01-05 06:44] VITALS: TEMP 97.8
[2021-01-05 06:53] LABS: Glucose,Whole Blood 149 mg/dL (75-99)
[2021-01-05] MEDS ORDERED: LACTATED RINGERS 1,000 ML IV ONE (06:57)
[2021-01-05] MEDS ORDERED: HYDROmorphone 0.5 MG/0.5 ML SYRINGE IVP PRN (07:00)
[2021-01-05] MEDS ORDERED: MIDAZOLAM 2 MG/2 ML VIAL ONE (07:22)
[2021-01-05] MEDS ORDERED: PROPOFOL 10 MG/ML 20 ML VIAL IV ONE (07:22)
[2021-01-05] MEDS ORDERED: fentaNYL (PF) 50 MCG/ML 2 ML AMP ONE (07:22)
[2021-01-05] MEDS ORDERED: KETAMINE 10 MG/ML 20 ML VIAL ONE (07:22)
[2021-01-05] MEDS ORDERED: LIDOCAINE 1%-EPI 1:100,000 20 ML VIAL SQ ONE (07:35)
--- NOTE | 2021-01-05 08:10 | P.OP ---
Date of Procedure: 01/05/21 Preoperative Diagnosis: Painful soft tissue mass lateral side of the left ankle Postoperative Diagnosis: Namepending path report Procedure(s) Performed: Vision of the soft tissue mass lateral side of the left ankle Surgeon: Devin Farah Description of Procedure: On the date of surgery the patient was taken the operating room in good condition placed on the operating table in supine position started and adequate IV anesthetic agents were utilized anesthesia was then further supplemented with approximately 5 mL of 1% Xylocaine with epinephrine The patient's left foot and ankle were then prepped and draped in the usual aseptic manner and over heavy web roll padding an ankle tourniquet was placed above both the midcalf area the patient's left lower extremity since left foot and ankle were then prepped and draped in the usual aseptic manner At this point in time attention was directed to the lateral side of the left ankle where approximately 2 cm: Vision was made in line with the lateral mall eolus the incision was deepened via sharp dissection down through the level of the subcutaneous tissue layers all neurovascular structures encountered were identified isolated and were retracted and any bleeding vessels were clamped electrocauterized dissection was then carried deep via sharp and blunt technique and a small fibrous mass was identified it measured approximately 4 mm in diameter was round. It was dissected free dorsally plantarly medially laterally and deep it was clamped and excised in total from the surgical site. The surgical site was then examined for any remaining portions and when none was seen is were coaptated and maintained utilizing 4-0 nylon simple interrupted suture the incision was then dressed with Adaptic Kerlix fluffs four-inch conformer and 4 inch Coban ankle tourniquet to the patient's left ankle was deflated and adequate hemostatic return was seen in all digits of the patient's left foot tolerated the surgery and anesthesia well was taken to the recovery room in good postoperative condition.
[2021-01-05 08:23] VITALS: RESP 20
[2021-01-05 09:11] VITALS: BP 110/76; PULSE 80
== END 2021-01-05 09:06 | disposition home or self-care (01) ==
LOC: OR 06:20
PROVIDERS: ATTEND Podiatrist Foot & Ankle Surgery
DX: D21.22 Benign neoplasm of connective and other soft tissue of left lower limb, including hip (principal); Z91.040 Latex allergy status; E11.9 Type 2 diabetes mellitus without complications; E78.5 Hyperlipidemia, unspecified; Z79.4 Long term (current) use of insulin; Z79.899 Other long term (current) drug therapy
CPT/HCPCS: 81025; 88305; 27618; J2250; J1100; J2405; J3010; J2704

== ENCOUNTER → 2022-02-08 | Outpatient (CLI) | payer BC ==
--- NOTE | 2022-02-08 15:23 | US ---
EXAMINATION TYPE: US kidneys/renal and bladder DATE OF EXAM: 02/08/2022 COMPARISON: 11/19/2019 CLINICAL HISTORY: N39.9 uti. reoccurring UTI's EXAM MEASUREMENTS: Right Kidney: 9.6 x 4.8 x 4.4 cm Left Kidney: 12.1 x 4.4 x 5.0 cm Right Kidney: No hydronephrosis or masses seen Left Kidney: No hydronephrosis or masses seen Bladder: wnl Bilateral Jets seen: Yes There is no evidence for hydronephrosis at this point in time. No nephrolithiasis is seen. No servando s are identified. The urinary bladder is anechoic. Bilateral ureteral jets are seen. There are no r enal calcifications. The cortices are normal echotexture and thickness. There are no perinephric flui d collections. IMPRESSION: No significant abnormality seen.
== END | disposition home or self-care (01) ==
LOC: RADUSWWP 14:54
PROVIDERS: ATTEND Urology
DX: N39.9 Disorder of urinary system, unspecified (principal)
CPT/HCPCS: 76770

== ENCOUNTER → 2022-07-18 | Outpatient (CLI) | payer BC ==
--- NOTE | 2022-07-18 09:21 | US ---
EXAMINATION TYPE: US pelvis complete transvag DATE OF EXAM: 07/18/2022 COMPARISON: CT 11/21/2019 CLINICAL INDICATION: Female, 31 years old with history of N93.8 OTHER SPECIFIED ABNORMAL UTERINE AND VAGINAL; Irregular menses. TECHNIQUE: Transvaginal (TV) and Transabdominal (TA) . Transabdominal sonographic images of the pel vis were acquired. Transvaginal sonographic images were medically necessary to better assess the fol lowing anatomy: Endometrium, ovary Date of LMP: 06/23/2022, G0 EXAM MEASUREMENTS: Uterus: 8.9 x 4.9 x 3.3 cm Endometrial Stripe: 0.2 cm Right Ovary: 3.1 x 1.8 x 1.4 cm Left Ovary: 2.5 x 1.1 x 1.2 cm 1. Uterus: Anteverted wnl 2. Endometrium: wnl 3. Right Ovary: wnl 4. Left Ovary: wnl 5. Bilateral Adnexa: wnl 6. Posterior cul-de-sac: no free fluid Cervix- fluid visualized within cervical canal. IMPRESSION: 1. No evidence for acute process. 2. Endometrium appears within normal limits for thickness.
== END | disposition home or self-care (01) ==
LOC: RADUSWWP 08:20
PROVIDERS: ATTEND Obstetrics & Gynecology
DX: N93.8 Other specified abnormal uterine and vaginal bleeding (principal); N92.6 Irregular menstruation, unspecified
CPT/HCPCS: 76830; 76856

== ENCOUNTER → 2022-08-01 | Outpatient (CLI) | payer BC ==
[2022-08-01 22:42] LABS: Chol/HDL Ratio 2.79 Ratio; Glucose 155 mg/dL (70-110); LDL Cholesterol,Calculated 129.5 mg/dL (0.0-131.0); VLDL Calculation 14.78 mg/dL (5.00-40.00)
[2022-08-01 22:50] LABS: C-Peptide <0.02 ng/mL (0.81-3.85)
== END | disposition home or self-care (01) ==
LOC: LABWHC1 10:01
PROVIDERS: ATTEND Internal Medicine
DX: E10.65 Type 1 diabetes mellitus with hyperglycemia (principal)
CPT/HCPCS: 36415; 80061; 82947; 84681

== ENCOUNTER → 2022-08-02 | Outpatient (CLI) | payer BC ==
[2022-08-02 22:04] LABS: Microalbumin Creatinine Ratio <20 mg/g Cr (0-30); Urine Creatinine 58.6 mg/dL (28.0-217.0)
== END | disposition home or self-care (01) ==
LOC: LABWHC1 07:42
PROVIDERS: ATTEND Internal Medicine
DX: E10.65 Type 1 diabetes mellitus with hyperglycemia (principal)
CPT/HCPCS: 36415; 82043; 82570; 83036

== ENCOUNTER 2022-09-18 09:00 | Emergency (ER) | payer BC, OTHER ==
[2022-09-18 09:11] VITALS: RESP 18
[2022-09-18] MEDS ORDERED: KETOROLAC 15 MG/ML 1 ML VIAL IM STA (10:07)
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
[2022-09-18 11:42] VITALS: BP 158/95; PULSE 89; TEMP 97.6
== END 2022-09-18 11:42 | disposition home or self-care (01) ==
LOC: EC 09:00
DX: Z04.3 Encounter for examination and observation following other accident (principal); E11.9 Type 2 diabetes mellitus without complications; Z87.891 Personal history of nicotine dependence; Z79.4 Long term (current) use of insulin; Z79.84 Long term (current) use of oral hypoglycemic drugs; Z91.040 Latex allergy status; V89.2XXA Person injured in unspecified motor-vehicle accident, traffic, initial encounter; Y92.411 Interstate highway as the place of occurrence of the external cause
CPT/HCPCS: 99284; 96372; J1885

== ENCOUNTER → 2022-09-26 | Outpatient (CLI) | payer OTHER, BC ==
--- NOTE | 2022-09-27 07:43 | XR ---
EXAMINATION TYPE: XR thoracic spine complete DATE OF EXAM: 09/26/2022 CLINICAL HISTORY: pain TECHNIQUE: Frontal, lateral, and swimmer's view of thoracic spine are obtained. COMPARISON: None. FINDINGS: Thoracic spine show satisfactory alignment without evidence of acute fracture or dislocatio n. Vertebral body heights are preserved. Mild scattered degenerative disc space narrowing and spondy losis. Visualized ribs are unremarkable. IMPRESSION: No acute fracture or dislocation is seen in the thoracic spine. ICD 10 NO FRACTURE, INIT IAL EVALUATION
--- NOTE | 2022-09-27 12:17 | XR ---
EXAMINATION TYPE: XR cervical spine limited DATE OF EXAM: 09/26/2022 CLINICAL HISTORY: pain TECHNIQUE: 3 views of the cervical spine are submitted. COMPARISON: None. FINDINGS: There is satisfactory in alignment without evidence of acute fracture or dislocation. The pre-vertebral soft tissue appears within normal limits. Mild degenerative narrowing C4-5 and C5-6 wi th minimal ventral spondylosis. The C1-C2 articulation is unremarkable on the open mouth view. IMPRESSION: No acute fracture or dislocation is seen in the cervical spine.
== END | disposition home or self-care (01) ==
LOC: RADXRMAIN 18:21
PROVIDERS: ATTEND Family Medicine
DX: M54.2 Cervicalgia (principal); M54.6 Pain in thoracic spine
CPT/HCPCS: 72040; 72072

== ENCOUNTER → 2023-05-28 | Outpatient (CLI) | payer OTHER ==
--- NOTE | 2023-05-28 10:55 | XR ---
EXAMINATION TYPE: XR foot complete RT DATE OF EXAM: 05/28/2023 CLINICAL HISTORY: pain TECHNIQUE: Frontal, lateral and oblique images of the right foot are obtained. COMPARISON: None. FINDINGS: There is no acute fracture/dislocation evident. Degenerative narrowing first metatarsophal angeal joint with dorsal spur formation. The overlying soft tissue appears unremarkable. IMPRESSION: There is no acute fracture or dislocation. ICD 10 NO FRACTURE, INITIAL EVALUATION
== END | disposition home or self-care (01) ==
LOC: RADXRMAIN 09:14
PROVIDERS: ATTEND Emergency Medicine
DX: S93.601A Unspecified sprain of right foot, initial encounter (principal); X58.XXXA Exposure to other specified factors, initial encounter

== ENCOUNTER 2023-06-30 05:49 | Emergency (ER) | payer MEDICAID, OTHER ==
[2023-06-30 05:53] LABS: Glucose,Whole Blood 24 mg/dL (70-110)
[2023-06-30] MEDS: DEXTROSE 50% SYRINGE 50 ML IVP STA (06:00)
[2023-06-30 06:06] LABS: Basophils % (A) 0 %; Eosinophils # (A) 0.1 k/uL (0-0.7); Eosinophils % (A) 1 %; HCT 44.1 % (34.0-46.0); HGB 14.3 gm/dL (11.4-16.0); Lymphocytes # (A) 1.3 k/uL (1.0-4.8); Lymphocytes % (A) 13 %; MCHC 32.5 g/dL (31.0-37.0); MCV 92.1 fL (80.0-100.0); Mean Platelet Volume 7.7; Monocytes # (A) 0.4 k/uL (0-1.0); Monocytes % (A) 4 %; Neutrophils # (A) 8.4 k/uL (1.3-7.7); Neutrophils % (A) 81 %; Platelet Count 253 k/uL (150-450); RBC 4.78 m/uL (3.80-5.40); RDW 12.5 % (11.5-15.5); WBC 10.3 k/uL (3.8-10.6)
[2023-06-30 06:15] LABS: Glucose,Whole Blood 130 mg/dL (70-110)
--- NOTE | 2023-06-30 06:25 | ED ---
Recheck HPI - General Chief Complaint: Recheck/Abnormal Lab/Rx Stated Complaint: Hypoglycemic Time Seen by Provider: 06/30/23 05:59 Source: patient, family, EMS, RN notes reviewed Mode of arrival: EMS Limitations: no limitations - History of Present Illness Initial Comments: This is a 32-year-old female who presents to the emergency department for hypogl ycemia. Patient states that the transmitter to her insulin pump has been off charging since noon yesterday. Her sugars were fine yesterday and last night and she got ready for bed as usual. Her boyfriend went to hug her goodbye before he left, and noticed that she was very slow to respond and and in cold sweats, prompting him to call EMS. When EMS arrived, they state that the patient was only responsive to painful stimuli and her sugar was at 34. She states that her sugars have not been this low in many years. Her pump is not new and she last changed sensor locations on the abdomen 2 days ago. Aside from the transmitter being charging, her routine remained the same. - Related Data Home Medications Medication Instructions Recorded Confirmed Atorvastatin [Lipitor] 20 mg PO DAILY 11/19/19 01/03/21 Insulin Glargine [Lantus Vial] See Protocol SQ DAILY PRN 11/19/19 01/03/21 Insulin Aspart (Niacinamide) 0 units SQ CONTINUOUS 01/03/21 01/03/21 [Fiasp 100 Unit/ml Vial] buPROPion HCL [Wellbutrin XL] 150 mg PO DAILY 01/03/21 01/03/21 metFORMIN HCL 1,000 mg PO QAM 01/03/21 01/03/21 norethindrone ac-eth estradioL 1 each PO QAM 01/03/21 01/03/21 [Microgestin 21 1.5-30 Tab] Allergies Allergy/AdvReac Type Severity Reaction Status Date / Time latex Allergy Rash/Hives Verified 06/30/23 05:58 Review of Systems ROS Statement: Those systems with pertinent positive or pertinent negative responses have been documented in the HPI. ROS Other: All systems not noted in ROS Statement are negative. Past Medical History Past Medical History: Diabetes Mellitus Additional Past Medical History / Comment(s): kidney stones History of Any Multi-Drug Resistant Organisms: None Reported Additional Past Surgical History / Comment(s): lithotripsy, Past Psychological History: No Psychological Hx Reported Smoking Status: Former smoker - Past Family History Mother Family Medical History: No Reported History Father Family Medical History: No Reported History General Exam Limitations: no limitations General appearance: alert, in no apparent distress Head exam: Present: atraumatic, normocephalic, normal inspection Respiratory exam: Present: normal lung sounds bilaterally. Absent: respiratory distress, wheezes, rales, rhonchi, stridor Cardiovascular Exam: Present: regular rate, normal rhythm, normal heart sounds. Absent: systolic murmur, diastolic murmur, rubs, gallop, clicks GI/Abdominal exam: Present: soft, normal bowel sounds. Absent: distended, tenderness, guarding, rebound, rigid Neurological exam: Present: alert, oriented X3, CN II-XII intact Psychiatric exam: Present: normal affect, normal mood Skin exam: Present: warm, dry, intact, normal color. Absent: rash Course Vital Signs 06/30/23 06/30/23 06/30/23 05:55 07:22 07:58 Temperature 97.4 F L 97.9 F Pulse Rate 89 86 98 Respiratory 18 18 16 Rate Blood Pressure 149/94 116/75 118/72 O2 Sat by Pulse 100 96 99 Oximetry Medical Decision Making - Medical Decision Making This is a 32 year old female who presents to the emergency department for hypoglycemia. Was pt. sent in by a medical professional or institution? @ -No Did you speak to anyone other than the patient for history? @ -Her boyfriend provided the information about what happened. Did you review nursing and triage notes? @ -Yes, and I agree, it is accurate with regards to the patient's symptoms. Were old charts reviewed? @ -No Differential Diagnosis? @ -Differential Hypoglycemia: Insulin error, dietary changes, dexcom malfunction, insulinoma, this is not meant to be an all-inclusive list. EKG interpreted by me (3pts min.)? @ -EKG interpreted by me demonstrating the following: Sinus tachycardia. Ventricular rate 106 bpm, DC interval 137 ms, QRS duration 81 ms, QTc 368 ms. X-rays interpreted by me (1pt min.)? @ -Not obtained CT interpreted by me (1pt min.)? @ -Not obtained U/S interpreted by me (1pt. min.)? @ -Not obtained What testing was considered but not performed? (CT, X-rays, U/S, labs)? Why? @ -None What meds were considered but not given? Why? @ -None Did you discuss the management of the patient with other professionals? @ -No Did you reconcile home meds? @ -No Was smoking cessation discussed for >3mins.? @ -No Was critical care preformed (if so, how long)? @ -No Were there social determinants of health that impacted care today? How? (Homelessness, low income, unemployed, alcoholism, drug addiction, transportation, low edu. Level, literacy, decrease access to med. care, usp, rehab)? @ -No Was there de-escalation of care discussed even if they declined? (Discuss DNR or withdrawal of care, Hospice)? @ -No What co-morbidities impacted this encounter? (DM, HTN, Smoking, COPD, CAD, Cancer, CVA, Hep., AIDS, mental health diagnosis, sleep apnea, morbid obesity)? @ -DM Was patient admitted / discharged? @ -Discharged. On arrival, patient was diaphoretic and slow to respond. Glucose checked at 24. Patient given an ampule of dextrose and when she started to become more responsive she was able to start drinking juice as well. Sugar rechecked at 130. Lab work was otherwise unremarkable. Urinalysis negative for signs of infection. Patient was eating and drinking in the emergency department without difficulty. Sugar rechecked at 187. Hypoglycemic episode likely due to insulin being received while the transmitter was off and charging, causing an excessive dose to be given. Patient advised to follow up with her PCP and curatorial assistant and was otherwise discharged home in stable condition. Undiagnosed new problem with uncertain prognosis? @ -None Drug Therapy requiring intensive monitoring for toxicity (Heparin, Nitro, Insulin, Cardizem)? @ -None Were any procedures done? @ -None Diagnosis/symptom? @ -Hypoglycemia Acute, or Chronic, or Acute on Chronic? @ -Acute Uncomplicated (without systemic symptoms) or Complicated (systemic symptoms)? @ -Complicated during the episode Side effects of treatment? @ -None Exacerbation, Progression, or Severe Exacerbation] @ -Not applicable Poses a threat to life or bodily function? @ -Not at this time given that it has resolved. Return precautions reviewed in depth, the patient is instructed to return to the emergency department with any new, worsening, or concerning symptoms. Patient verbalized understanding. This case was discussed in detail with the attending ED physician, Dr. Leong. Presentation, findings, and treatment plan discussed in detail as well. - Lab Data Result diagrams: 06/30/23 05:59 06/30/23 05:59 Lab Results 06/30/23 06/30/23 06/30/23 Range/Units 05:51 05:59 05:59 WBC 10.3 (3.8-10.6) k/uL RBC 4.78 (3.80-5.40) m/uL Hgb 14.3 (11.4-16.0) gm/dL Hct 44.1 (34.0-46.0) % MCV 92.1 (80.0-100.0) fL MCH 30.0 (25.0-35.0) pg MCHC 32.5 (31.0-37.0) g/dL RDW 12.5 (11.5-15.5) % Plt Count 253 (150-450) k/uL MPV 7.7 Neutrophils % 81 % Lymphocytes % 13 % Monocytes % 4 % Eosinophils % 1 % Basophils % 0 % Neutrophils # 8.4 H (1.3-7.7) k/uL Lymphocytes # 1.3 (1.0-4.8) k/uL Monocytes # 0.4 (0-1.0) k/uL Eosinophils # 0.1 (0-0.7) k/uL Basophils # 0.0 (0-0.2) k/uL Sodium 139 (137-145) mmol/L Potassium 3.7 (3.5-5.1) mmol/L Chloride 107 (98-107) mmol/L Carbon Dioxide 26 (22-30) mmol/L Anion Gap 6 mmol/L BUN 13 (7-17) mg/dL Creatinine 0.68 (0.52-1.04) mg/dL Est GFR (CKD-EPI)AfAm >90 (>60 ml/min/1.73 sqM) Est GFR (CKD-EPI)NonAf >90 (>60 ml/min/1.73 sqM) Glucose 46 L* (74-99) mg/dL POC Glucose (mg/dL) 24 L (70-110) mg/dL POC Glu Clinical Biostatistics Director ID Rhezie, Emie Calcium 9.3 (8.4-10.2) mg/dL Total Bilirubin 0.3 (0.2-1.3) mg/dL AST 27 (14-36) U/L ALT 16 (4-34) U/L Alkaline Phosphatase 60 (38-126) U/L Total Protein 7.7 (6.3-8.2) g/dL Albumin 4.4 (3.5-5.0) g/dL Urine Color Urine Appearance (Clear) Urine pH (5.0-8.0) Ur Specific [place] (1.001-1.035) Urine Protein (Negative) Urine Glucose (UA) (Negative) Urine Ketones (Negative) Urine Blood (Negative) Urine Nitrite (Negative) Urine Bilirubin (Negative) Urine Urobilinogen (<2.0) mg/dL Ur Leukocyte Esterase (Negative) Urine RBC (0-5) /hpf Urine WBC (0-5) /hpf Ur Squamous Epith Cells (0-4) /hpf Urine Bacteria (None) /hpf Urine Mucus (None) /hpf Urine HCG, Qual (Not Detectd) 06/30/23 06/30/23 06/30/23 Range/Units 06:14 06:50 06:50 WBC (3.8-10.6) k/uL RBC (3.80-5.40) m/uL Hgb (11.4-16.0) gm/dL Hct (34.0-46.0) % MCV (80.0-100.0) fL MCH (25.0-35.0) pg MCHC (31.0-37.0) g/dL RDW (11.5-15.5) % Plt Count (150-450) k/uL MPV Neutrophils % % Lymphocytes % % Monocytes % % Eosinophils % % Basophils % % Neutrophils # (1.3-7.7) k/uL Lymphocytes # (1.0-4.8) k/uL Monocytes # (0-1.0) k/uL Eosinophils # (0-0.7) k/uL Basophils # (0-0.2) k/uL Sodium (137-145) mmol/L Potassium (3.5-5.1) mmol/L Chloride (98-107) mmol/L Carbon Dioxide (22-30) mmol/L Anion Gap mmol/L BUN (7-17) mg/dL Creatinine (0.52-1.04) mg/dL Est GFR (CKD-EPI)AfAm (>60 ml/min/1.73 sqM) Est GFR (CKD-EPI)NonAf (>60 ml/min/1.73 sqM) Glucose (74-99) mg/dL POC Glucose (mg/dL) 130 H (70-110) mg/dL POC Glu Clinical Biostatistics Director ID Shaylee Crandall Calcium (8.4-10.2) mg/dL Total Bilirubin (0.2-1.3) mg/dL AST (14-36) U/L ALT (4-34) U/L Alkaline Phosphatase (38-126) U/L Total Protein (6.3-8.2) g/dL Albumin (3.5-5.0) g/dL Urine Color Colorless Urine Appearance Cloudy H (Clear) Urine pH 6.0 (5.0-8.0) Ur Specific [place] 1.014 (1.001-1.035) Urine Protein Negative (Negative) Urine Glucose (UA) 3+ H (Negative) Urine Ketones Negative (Negative) Urine Blood Negative (Negative) Urine Nitrite Negative (Negative) Urine Bilirubin Negative (Negative) Urine Urobilinogen <2.0 (<2.0) mg/dL Ur Leukocyte Esterase Small H (Negative) Urine RBC 1 (0-5) /hpf Urine WBC 5 (0-5) /hpf Ur Squamous Epith Cells 15 H (0-4) /hpf Urine Bacteria Rare H (None) /hpf Urine Mucus Rare H (None) /hpf Urine HCG, Qual Not Detected (Not Detectd) 06/30/23 Range/Units 07:17 WBC (3.8-10.6) k/uL RBC (3.80-5.40) m/uL Hgb (11.4-16.0) gm/dL Hct (34.0-46.0) % MCV (80.0-100.0) fL MCH (25.0-35.0) pg MCHC (31.0-37.0) g/dL RDW (11.5-15.5) % Plt Count (150-450) k/uL MPV Neutrophils % % Lymphocytes % % Monocytes % % Eosinophils % % Basophils % % Neutrophils # (1.3-7.7) k/uL Lymphocytes # (1.0-4.8) k/uL Monocytes # (0-1.0) k/uL Eosinophils # (0-0.7) k/uL Basophils # (0-0.2) k/uL Sodium (137-145) mmol/L Potassium (3.5-5.1) mmol/L Chloride (98-107) mmol/L Carbon Dioxide (22-30) mmol/L Anion Gap mmol/L BUN (7-17) mg/dL Creatinine (0.52-1.04) mg/dL Est GFR (CKD-EPI)AfAm (>60 ml/min/1.73 sqM) Est GFR (CKD-EPI)NonAf (>60 ml/min/1.73 sqM) Glucose (74-99) mg/dL POC Glucose (mg/dL) 187 H (70-110) mg/dL POC Glu Clinical Biostatistics Director ID Kyree Crandall Calcium (8.4-10.2) mg/dL Total Bilirubin (0.2-1.3) mg/dL AST (14-36) U/L ALT (4-34) U/L Alkaline Phosphatase (38-126) U/L Total Protein (6.3-8.2) g/dL Albumin (3.5-5.0) g/dL Urine Color Urine Appearance (Clear) Urine pH (5.0-8.0) Ur Specific [place] (1.001-1.035) Urine Protein (Negative) Urine Glucose (UA) (Negative) Urine Ketones (Negative) Urine Blood (Negative) Urine Nitrite (Negative) Urine Bilirubin (Negative) Urine Urobilinogen (<2.0) mg/dL Ur Leukocyte Esterase (Negative) Urine RBC (0-5) /hpf Urine WBC (0-5) /hpf Ur Squamous Epith Cells (0-4) /hpf Urine Bacteria (None) /hpf Urine Mucus (None) /hpf Urine HCG, Qual (Not Detectd) Disposition Clinical Impression: Hypoglycemia Disposition: HOME SELF-CARE Instructions (If sedation given, give patient instructions): Hypoglycemia in a Person with Diabetes (ED) Additional Instructions: Return to the emergency department with any new, worsening, or concerning symptoms. Follow up with your primary care provider in 1-2 days. Is patient prescribed a controlled substance at d/c from ED?: No Referrals: Colleen Vera MD [Primary Care Provider] - 1-2 days Time of Disposition: 07:24
[2023-06-30] MEDS: SODIUM CHLORIDE 0.9% 1,000 ML IV STA (06:50)
[2023-06-30 06:51] LABS: ALT 16 U/L (4-34); AST 27 U/L (14-36); African American GFR (CKD) >90 (>60 ml/min/1.73 sqM); Albumin 4.4 g/dL (3.5-5.0); Alkaline Phosphatase 60 U/L (38-126); Anion Gap 6 mmol/L; Blood Urea Nitrogen 13 mg/dL (7-17); Calcium 9.3 mg/dL (8.4-10.2); Carbon Dioxide 26 mmol/L (22-30); Chloride 107 mmol/L (98-107); Non-African American GFR(CKD) >90 (>60 ml/min/1.73 sqM); Potassium 3.7 mmol/L (3.5-5.1); Sodium 139 mmol/L (137-145); Total Bilirubin 0.3 mg/dL (0.2-1.3); Total Protein 7.7 g/dL (6.3-8.2)
[2023-06-30 06:57] LABS: Glucose 46 mg/dL (74-99)
[2023-06-30 07:02] LABS: Appearance,Urine Cloudy (Clear); Bacteria,Urine Rare /hpf; Bilirubin,Urine Negative (Negative); Blood,Urine Negative (Negative); Color,Urine Colorless; Glucose,Urine (UA) 3+ (Negative); Ketones,Urine Negative (Negative); Leukocyte Esterase,Urine Small (Negative); Mucus,Urine Rare /hpf; Nitrite,Urine Negative (Negative); Protein,Urine Negative (Negative); RBC,Urine 1 /hpf (0-5); Specific Gravity,Urine 1.014 (1.001-1.035); Squamous Epithelial Cell,Urine 15 /hpf (0-4); Urobilinogen,Urine <2.0 mg/dL (<2.0); WBC,Urine 5 /hpf (0-5)
[2023-06-30 07:18] LABS: Glucose,Whole Blood 187 mg/dL (70-110)
[2023-06-30 08:38] VITALS: BP 118/72; PULSE 98; RESP 16; TEMP 97.9
== END 2023-06-30 07:59 | disposition home or self-care (01) ==
LOC: EC 05:49
DX: E11.649 Type 2 diabetes mellitus with hypoglycemia without coma (principal); R00.0 Tachycardia, unspecified; Z87.891 Personal history of nicotine dependence; Z91.040 Latex allergy status
CPT/HCPCS: 36415; 80053; 81001; 81025; 85025; 93005; 96361; 96374; 99284

== ENCOUNTER → 2024-09-17 | Outpatient (CLI) | payer MEDICAID ==
[2024-09-17 11:19] LABS: ALT 12 U/L (8-44); AST 22 U/L (13-35); Albumin 4.2 g/dL (3.8-4.9); Albumin/Globulin Ratio 1.50 Ratio (1.60-3.17); Alkaline Phosphatase 51 U/L (41-126); Anion Gap 9.40 mmol/L (4.00-12.00); BUN/Creat Ratio 17.00 Ratio (12.00-20.00); Blood Urea Nitrogen 15.3 mg/dL (9.0-27.0); Calcium 9.8 mg/dL (8.7-10.3); Carbon Dioxide 25.6 mmol/L (21.6-31.8); Chloride 104 mmol/L (96-109); Cholesterol 198.00 mg/dL (0.00-200.00); Globulin 2.8 g/dL (1.6-3.3); Glucose 167 mg/dL (70-110); HDL Cholesterol 99.10 mg/dL (40.00-60.00); LDL Cholesterol,Calculated 89.6 mg/dL (0.0-131.0); Potassium 5.4 mmol/L (3.5-5.5); Sodium 139 mmol/L (135-145); Total Protein 7.0 g/dL (6.2-8.2); Triglycerides 46.70 mg/dL (0.00-149.00); VLDL Calculation 9.34 mg/dL (5.00-40.00)
== END | disposition home or self-care (01) ==
LOC: LABWHC1 07:21
PROVIDERS: ATTEND Internal Medicine
DX: E10.65 Type 1 diabetes mellitus with hyperglycemia (principal)
CPT/HCPCS: 36415; 80053; 80061; 82043; 82570; 83036